=== PATIENT | male | born 1980 | race Two or more races ===

== ENCOUNTER 2017-12-23 08:50 | Day surgery (SDC) | payer BC ==
[2017-12-23] VITALS (11 sets, daily range): BP systolic 123–143; BP diastolic 60–98
[~2017-12-23] VITALS: Ht 177.8 cm; Wt 70.3 kg
[~2017-12-23 08:50] MED LIST: NASACORT10.8 ML NS; ceFAZolin sod 1 GM in NS 55 ML IVPB ONE
[2017-12-23] MEDS ORDERED: Dexamethasone 4mg/ml vial ONE (08:51)
[2017-12-23] MEDS ORDERED: fentaNYL 100 mcg/2 mL IV ONE (08:51)
[2017-12-23] MEDS ORDERED: Zemuron 50mg/5ml Inj IV ONE (08:51)
[2017-12-23] MEDS ORDERED: Neostigmine 1mg/ml 10ml Inj ONE ×2 (08:51→13:01)
[2017-12-23] MEDS ORDERED: LR 1000ml ONE (08:51)
[2017-12-23] MEDS ORDERED: Ketamine 500mg Inj ONE (08:51)
[2017-12-23] MEDS ORDERED: NS Irrig 1000ml ONE (08:51)
[2017-12-23] MEDS ORDERED: Glycopyrrolate 0.2mg/ml 1ml Vial ONE (08:51)
[2017-12-23] MEDS ORDERED: Sterile Water Irrig 1000ml IRRIG ONE (08:51)
[2017-12-23] MEDS ORDERED: Midazolam 2mg/2ml Inj ONE (08:51)
[2017-12-23] MEDS ORDERED: Propofol 200mg/20ml IV ONE (08:51)
[2017-12-23] MEDS ORDERED: PROBIOTIC1 EAC2 PO (09:15)
[2017-12-23] MEDS ORDERED: PROBIOTIC1 EAC8 PO (09:15)
[2017-12-23] MEDS ORDERED: FISH OIL CAP1000 MG ORAL (09:15)
[2017-12-23] MEDS ORDERED: MULTIVITAMINS1 EAC2 ORAL (09:15)
[2017-12-23] MEDS ORDERED: Cocaine HCl 4% 4ml vial TOPIC ONE (09:39)
[2017-12-23] MEDS ORDERED: Betadine 10% Oint 15gm TOPIC ONE (09:40)
[2017-12-23] MEDS ORDERED: Lidocaine 1% 10mg/ml/EPI 0.01mg/ml 50ml INJ ONE (09:40)
[2017-12-23] MEDS ORDERED: Kenalog-40 1ml Vial ONE (09:40)
[2017-12-23] MEDS ORDERED: Oxymetazoline 0.05% Na Spray 30ml NASAL ONE (09:40)
[2017-12-23] MEDS ORDERED: Bacitracin Oint 15gm Tube TOPIC ONE (09:41)
[2017-12-23] MEDS ORDERED: Propofol 1,000mg/ 100ml btl IV ONE (10:30)
[2017-12-23] MEDS ORDERED: LR 1000ml 1,000 ML IVLG SCH (10:55)
--- NOTE | 2017-12-23 10:59 | Anethesia Preoperative Eval ---
Anesthesia Pre-op PMH/ROS General Date of Evaluation: Dec 23, 2017 Time of Evaluation: 11:51 Anesthesiologist: Maureen ASA Score: ASA 1 Mallampati Score Class I : Soft palate, uvula, fauces, pillars visible Class II: Soft palate, uvula, fauces visible Class III: Soft palate, base of uvula visible Class IV: Only hard plate visible Mallampati Classification: Class I Surgeon: Mallika Diagnosis: Deviated Septum Surgical Procedure: Septoplasty, SMR Turbinates Anesthesia History: none Family History: no anesthesia problems Allergies: Coded Allergies: No Known Allergies (Unverified , 12/23/17) Medications: see eMAR Past Medical History Neurologic/Psychiatric: Reports: other - Migranes PSxH Narrative: L Knee Arthroscopy Anesthesia Pre-op Phys. Exam Physician Exam Last Vital Signs Date Time Temp Pulse Resp B/P (MAP) Pulse Ox O2 Delivery O2 Flow Rate FiO2 12/23/17 09:10 97.9 55 18 134/60 97 Room Air 97.9 Constitutional: NAD Neurologic: CN 2-12 intact Cardiovascular: RRR Respiratory: CTA Gastrointestinal: S/NT/ND Airway Exam Mallampati Classification ASA 1 Mallampati Score: Class I MO: full ROM: full Teeth: intact Anesthesia Pre-op A/P Risk Assessment & Plan Assessment: ASA 1 Plan: GA, BIS, GlideScope Go Status Change Before Surgery: No Pre-Antibiotics Dru Gram Ancef IV Given Within 1 Hr of Incision: Yes Time Given: 12:04 Erik Reddy MD Dec 23, 2017 10:59
[2017-12-23] MEDS ORDERED: Labetalol 5mg/ml 20ml vial IV PRN (11:00)
[2017-12-23] MEDS ORDERED: Norco 5mg/325mg tab ORAL PRN (11:00)
[2017-12-23] MEDS ORDERED: Hydromorphone 0.5mg/0.5ml inj IVP PRN (11:00)
[2017-12-23] MEDS ORDERED: Ketorolac 30mg Inj IV PRN ×2 (11:00)
[2017-12-23] MEDS ORDERED: DiphenhydrAMINE 50mg/ml Inj IVP PRN (11:00)
[2017-12-23] MEDS ORDERED: oxyCODONE HCL/Acetaminophen 5/325mg ORAL PRN (11:00)
[2017-12-23] MEDS ORDERED: HYDROcodone/Acetamin 7.5/325 tab ORAL PRN (11:00)
[2017-12-23] MEDS ORDERED: Atropine Inj 1mg/10ml Syr IV PRN (11:00)
[2017-12-23] MEDS ORDERED: LORazepam Inj 2mg/ml 1ml IV PRN (11:00)
[2017-12-23] MEDS ORDERED: Acetaminophen (Non formulary) 100 ML IV ONE (11:00)
[2017-12-23] MEDS ORDERED: fentaNYL 100 mcg/2 mL IV PRN (11:00)
[2017-12-23] MEDS ORDERED: Midazolam 2mg/2ml Inj IVP PRN (11:00)
--- NOTE | 2017-12-23 11:00 | Immediate Post-Op Evaluation ---
Immediate Post-Op Evalulation Immediate Post-Op Evalulation Procedure: Septoplasty, SMR Turbinates Date of Evaluation: Dec 23, 2017 Time of Evaluation: 14:12 IV Fluids: 1000 LR Blood Products: 0 Estimated Blood Loss: 50 Urinary Output: 0 Blood Pressure Systolic: 133 Blood Pressure Diastolic: 87 Pulse Rate: 67 Respiratory Rate: 16 O2 Sat by Pulse Oximetry: 100 Temperature (Fahrenheit): 97.9 Pain Score (1-10): 2 Nausea: No Vomiting: No Complications 0 Patient Status: awake, reacts, patent, extubated, none Hydration Status: adequate Dru Gram Ancef IV Given Within 1 Hr of Incision: Yes Time Given: 12:04 Erik Reddy MD Dec 23, 2017 11:00
--- NOTE | 2017-12-23 11:01 | 48 Hour Post Anesthesia Eval ---
Post Anesthesia Evaluation Procedure: Septoplasty, SMR Turbinates Date of Evaluation: Dec 23, 2017 Time of Evaluation: 16:22 Blood Pressure Systolic: 128 0: 63 Pulse Rate: 56 Respiratory Rate: 18 Temperature (Fahrenheit): 98.2 O2 Sat by Pulse Oximetry: 100 Airway: patent Nausea: No Vomiting: No Pain Intensity: 0 Hydration Status: adequate Cardiopulmonary Status: Stable Mental Status/LOC: patient returned to baseline Follow-up Care/Observations: 0 Post-Anesthesia Complications: 0 Follow-up care needed: ready to discharge Erik Reddy MD Dec 23, 2017 11:01
--- NOTE | 2017-12-23 11:40 | Pre-Procedure Note/Attestation ---
Pre-Procedure Note/Attestation Complete Prior to Procedure Planned Procedure: not applicable Procedure Narrative: nasal obstruction unresponsive to medication Indications for Procedure Pre-Operative Diagnosis: septal deviation, bilateral hypertrophied inferior turbinates Attestation I attest that I discussed the nature of the procedure; its benefits; risks and complications; and alternatives (and the risks and benefits of such alternatives ), prior to the procedure, with the patient (or the patient's legal insurance claims representative). I attest that, if there was a reasonable possibility of needing a blood transfusion, the patient (or the patient's legal insurance claims representative) was given the [facility] standardized written summary, pursuant to the [place] Blood Safety Act ([place] Health and Safety Code # 1645, as amended). I attest that I re-evaluated the patient just prior to the surgery and that there has been no change in the patient's H&P, except as documented below: VINNY WEBBER Dec 23, 2017 11:40
--- NOTE | 2017-12-23 13:53 | Brief Operative Note ---
Immediate Post Operative Note Operative Note Pre-op Diagnosis: septal deviation, bilateral hypertrophied inferior turbinates Procedure: septoplasty, bilateral inferior turbinectomies with intramural coagulation Post-op Diagnosis: same as pre-op Surgeon: Shahzad Webber M.D. Anesthesiologist: Tomer Anesthesia: general Specimen: yes - septum Complications: none Condition: stable Fluids: ringers lactate Estimated Blood Loss: minimal Drains: none Packing: telfa Implant(s) used?: No SHAHZAD WEBBER Dec 23, 2017 13:53
--- NOTE | 2017-12-25 02:15 | Operative Note - Dictated ---
DATE OF OPERATION: 12/23/2017 SURGEON: Shahzad Tena M.D. ANESTHESIOLOGIST: Erik Reddy M.D. PREOPERATIVE DIAGNOSES: 1. Septal deviation. 2. Bilateral hypertrophied inferior turbinates. POSTOPERATIVE DIAGNOSES: 1. Septal deviation. 2. Bilateral hypertrophied inferior turbinates. PROCEDURES: 1. Septoplasty. 2. Bilateral inferior turbinectomies with intramural coagulation. INDICATIONS FOR SURGERY: The patient is a 37-year-old male who complains of bilateral nasal obstruction, unresponsive to medication. Examination revealed a narrow left nostril secondary to his left septal deviation pushing the columella leftward and then the septum curved superiorly to the right blocking the superior aspect of the right nasal chamber. This deformity is combined with the patient's tremendous bilateral hypertrophied inferior turbinates create a bilateral nasal airway obstruction. The findings at surgery revealed an S-shaped septal deviation curving to the left inferiorly and pushing the columella to the left blocking the left nostril region and then the septum to the right with huge bone deviation blocking the more superior aspect of the right nasal chamber. This combined with the patient's bilateral hypertrophied inferior turbinates created bilateral nasal airway obstruction. DESCRIPTION OF PROCEDURE: The patient was brought to the operating room while premedicated and having received preoperative antibiotics. He was then placed in supine position on the operating room table. After the patient underwent satisfactory intubation, he was given IV sedation. The nasal cavity was then sprayed with 0.25% Neymar-Synephrine. Sterile Q-tips saturated with Betadine were used to sterilize the intranasal cavity. Less than 24 mL of 1% Xylocaine with 1:100,000 epinephrine per mL were used to inject the nasal and septal frameworks. Less than 200 mg of cocaine were used on intranasal packing. The patient was then prepped and draped in the usual sterile fashion. It is of note because of the patient's bilateral nasal obstruction, only a small amount of packing could be placed in both nasal cavity regions. The nasal packing was removed from the nasal cavity. A #15 blade was used to make a left inferior septal incision and left mucoperichondrium mucoperiosteal flap was elevated. An incision was made between the cartilage and bony septum and a right mucoperiosteal flap was elevated. That portion of overriding obstructing perpendicular plate of the ethmoid and vomer bone were incised in strips, from attachments and removed from the field of operation. A similar procedure was performed on the portion of the mid cartilage area, which was also deviated to the right. Re-examination still revealed a large hypertrophied bone walking at portion of the superior aspect the right nasal chamber. This was removed by fracturing the bone both through anterior and posterior to the deviated area and removed with a small piece of the bone from the pocket. This was continued until there were no attachments left. The large thicker bone was grasped with Alexis and removed from the field of operation. Examination still revealed a narrow left nostril area and that the anterior nasal spine was also deviated to the left. The anterior nasal spine was fractured in midline using mallet and chisel technique. Re-examination still revealed the columella deviated secondary to the cartilage being deflected at 45-degree angle. That portion of deviation was cross-hatched with #15 blade and mobilized in more midline position for breathing. Examination now revealed septum in a more midline physiologic position for breathing. Bilateral intramural coagulation of both inferior turbinates was then performed. An incision was made on the undersurface of both inferior turbinates and mucosa stripped the underlying bone. The inferior turbinates were then outfractured and small piece of bone removed from the pocket. Examination now revealed the patient to have a good bilateral nasal airway. All blood was suctioned from the nose and nasopharynx area. A 4-0 plain was used to close the septal incision as well as to splint the septum. Telfa coated with Betadine ointment was then secured in place and the procedure was terminated. The patient tolerated the procedure well and left the operating room in satisfactory condition. Estimated blood loss was less than 30 mL. Sponge and needle count were correct. Shahzad Tena M.D. DR: KIMBERLY JOB#: [id number] CC:
== END 2017-12-23 15:15 | disposition home or self-care (01) ==
LOC: SUR 08:50
DX: J34.2 Deviated nasal septum (principal); J34.3 Hypertrophy of nasal turbinates
CPT/HCPCS: 30140; 30520; J0690; J1100; J1885; J2250; J2405; J2704; J2710; J3010; J3490; J7120; 94003; 94150